=== PATIENT | female | born 1970 | race Caucasian/White ===

== ENCOUNTER → 2023-06-02 12:55 | Outpatient (REF) | payer BC, SELFPAY | LOC: HWRAD 12:55 | PROVIDERS: ATTENDING PHYSICIAN Physician Assistant | DX: I10 Essential (primary) hypertension (principal); R07.9 Chest pain, unspecified; R05.2 Subacute cough | CPT/HCPCS: 71046 ==

== ENCOUNTER → 2023-09-18 15:25 | Outpatient (REF) | payer OTHER, SELFPAY | LOC: WDC 15:25 | PROVIDERS: ATTENDING PHYSICIAN Physician Assistant | DX: Z12.31 Encounter for screening mammogram for malignant neoplasm of breast (principal) | CPT/HCPCS: 77063; 77067 ==

== ENCOUNTER 2024-01-30 13:23 | Emergency (ER) | payer OTHER, SELFPAY ==
[2024-01-30] VITALS (9 sets, daily range): BP systolic 137–179; BP diastolic 81–101; BMI 30.1
--- NOTE | 2024-01-30 14:01 | EDRN ---
provider currently at the pts bedside
--- NOTE | 2024-01-30 14:38 | ED.GENMED ---
History of Present Illness
General
Chief Complaint: Blood Pressure Problem
Time Seen by Provider: 01/30/24 13:44
History of Present Illness
History of Present Illness:
53-year-old female with history of high blood pressure presenting to the emergency department for dizziness and generally feeling unwell. Patient reports that she has been feeling unwell for the past few days and this morning particularly felt
dizzy while getting out of bed. She checked her blood pressure, noted that it was elevated so she called her doctor and went to the doctor's office today. At the doctor's office, blood pressure was markedly elevated, so she was advised to come to
the hospital. She reports that the dizziness is worse with certain movements. Denies associated chest pain or difficulty breathing. Denies weakness or numbness to her extremities. Denies visual changes. Denies recent fever or illness. Denies
abdominal pain or GI symptoms. She reports compliance with her blood pressure medication. Denies acute medical complaints
Past History
Past History
ED Past Medical History: HTN
ED Past Surgical History: , Gynecological and Tonsilectomy
Social History
Tobacco: Former smoker
Alcohol: Occasional
Drug: None
Personal:
Living: with family
Employment: Not employed
Family History
Family History: Diabetes, Hypertension and Early CAD
Phy Exam
Physical Exam
Physical Exam:
General: Well-appearing, no clinical signs of dehydration, nontoxic and in no acute distress
HEENT: protecting airway
Neck: appears supple
CV: Normal heart rate, regular rhythm
Resp: No accessory muscle use, no increased work of breathing, lungs clear to auscultation bilaterally
Abd: Soft and non-distended, no tenderness to palpation
Extremities: No deformities, no swelling, no erythema, pulses and sensation intact
Neuro: alert, no focal neurologic deficit
: deferred
Rectal: deferred
Psych: Normal affect
Skin: Intact
Course
Orders/Labs/Results
Orders:
Orders
01/30/24 13:33
Electrocardiogram (*1) Urgent
Reason for Study: Chest Pain
EKG- Treatment ONCE
01/30/24 14:13
Meclizine [Antivert] 25 mg PO NOW STA
01/30/24 14:14
CT Head W/o Iv Contrast Urgent
Comment:
Reason For Exam: dizzy, htn
01/30/24 14:40
Complete Blood Count/With Diff Urgent
Comprehensive Metabolic Panel Urgent
Troponin I Urgent
Abnormal Lab Results
01/30/24
14:40
MCH 31.3 H pg
(27.0-31.0)
Absolute Monos (auto) 0.7 H 10^3/uL
(0.1-0.6)
Creatinine 0.5 L mg/dL
(0.6-1.0)
Glucose 103 H mg/dl
(70-99)
01/30/24 14:40
01/30/24 14:40
Vital Signs
Initial and Last Documented VS:
Initial Vital Signs
Temp Pulse Resp BP Pulse Ox
98.2 F 82 16 179/101 99
01/30/24 13:27 01/30/24 13:27 01/30/24 13:27 01/30/24 13:27 01/30/24 13:27
Last Documented Vital Signs
Temp Pulse Resp BP Pulse Ox
97.5 F 76 20 157/83 99
01/30/24 13:41 01/30/24 15:45 01/30/24 14:52 01/30/24 16:02 01/30/24 16:02
MDM/Problems Addressed
MDM/Problems Addressed:
53-year-old female with history of hypertension presenting for dizziness and generally feeling unwell. Vital signs on arrival significant for high blood pressure, however improved without intervention.
On exam, patient is resting comfortably, no acute distress or discomfort. Overall benign examination, unremarkable cardiac and pulmonary exam. On neurologic exam, no focal neurologic deficits would lower suspicion for central neurologic process.
Patient does report symptoms are worse with some head movements and when bending forward. Possible vertiginous component. EKG obtained, nonischemic chest pain suspicion for ACS. Will obtain laboratory analysis and check electrolyte panel,
hemoglobin to ensure no symptomatic anemia. Will also screen with CT brain imaging. Will trial meclizine and reassess for improvement.
15:45 - CT brain without acute intracranial abnormality. Labs unremarkable. Blood pressure remained stable. On reassessment, patient remains hemodynamically stable. Feel stable for discharge with close outpatient primary care follow-up. Return
precautions discussed and patient verbalized understanding
*EKG
Interpreted by ED Provider?: Yes
EKG Intrepretation Date: 01/30/24
EKG Intrepretation Time: 14:41
Interpretation: normal
Comparison EKG: no comparison EKG present
Heart Rate: 74
Rate: normal
Rhythm: sinus
[place]: normal axis
Interval: normal interval
QRS Pattern: normal QRS
Ischemia: no ischemia
*Critical Care Note
Total Time (30-74mins, 75-104mins- exclusive of procedures): Not Applicable
ED Attending Note
-
Portions of this chart may have been created with voice recognition software.� Occasional wrong word or��sound alike� substitutions may have occurred due to the inherent limitations of voice recognition software.
Discharge Plan
Departure
Patient Disposition: Home (Routine Discharge)
Date of Disposition: 01/30/24
Time of Disposition: 15:50
Patient with high blood pressure during this ER visit?: Yes
Condition: Good
Discharge Problem:
Dizziness, Hypertension
Instructions: Dizziness, Adult ED, BLOOD PRESSURE
Prescriptions:
New
meclizine 25 mg tablet
25 mg PO BID PRN (Reason: dizziness) 5 Days Qty: 10 0RF
No Action
alprazolam 0.25 MG tablet
0.125 - 0.25 mg PO HSPRN PRN (Reason: sleep)
Patient Comments:
filled pdmp 05/05/20
amlodipine-benazepril 1 CAPSULE capsule
1 cap PO DAILY
Referrals:
Chance Linn, DO [Family Provider] -
Activity Restrictions/Additional Instructions:
You were seen in the emergency department for dizziness
You were found to have elevated blood pressure, however you had normal EKG, blood work, CT brain imaging of your head.
Please follow-up closely with your primary care physician.
Return to the emergency department for any worsening of your symptoms, or any development of chest pain, difficulty breathing, abdominal pain with persistent vomiting and inability to tolerate food or liquid by mouth (concern for dehydration),
weakness or lightheadedness, headache or confusion, fever greater than 100.4, or any additional symptoms that are concerning to you.
Thank you for choosing [facility].
Interventions
Interventions:
*Risk Screen - Suicide Last Done: 01/30/24 13:27
*General Assessment Last Done: 01/30/24 13:27
*Neglect/Abuse Screening Last Done: 01/30/24 13:27
ED- Fall Risk Assessment Last Done: 01/30/24 13:41
*ED COVID-19 Vaccine History Last Done: 01/30/24 13:41
*Nursing Disposition Last Done: 01/30/24 16:02
ED- Cardiac Assessment Last Done: 01/30/24 13:41
ED- Neurological Assessment Last Done: 01/30/24 13:41
ED- Pulmonary Assessment Last Done: 01/30/24 13:41
Discharge Date and Time
Discharge Date/Time: 01/30/24 16:05
Print Language: ROMANSH
--- NOTE | 2024-01-30 14:52 | EDRN ---
labs were drawn and sent, the pt refused to be swabbed for covid and refused meclizine, provider notified
[2024-01-30 15:00] LABS: % Basophils 0.3 % (0-2); % Eosinophils 3.5 % (0-6); % Immature Granulocytes 0.2 % (0-0.5); % Lymphocytes 25.4 % (20.5-51.1); % Monocytes 7.1 % (1.7-9.3); % Neutrophils 63.5 % (42.2-75.2); Absolute Eosinophils 0.3 10^3/uL (0-0.7); Absolute Lymphocytes 2.3 10^3/uL (1.2-3.4); Absolute Monocytes 0.7 10^3/uL (0.1-0.6); Absolute Neutrophils 5.8 10^3/uL (1.4-6.5); Hematocrit 42.6 % (37.0-47.0); Hemoglobin 14.5 g/dL (12.0-16.0); Mean Corpuscular Hgb 31.3 pg (27.0-31.0); Mean Corpuscular Volume 91.8 fL (81.0-99.0); Mean Platelet Volume 9.5 fL (7.4-10.4); Nucleated Red Blood Cells % 0 %; Platelet Count 260 10^3/uL (130-400); Red Blood Cell Count 4.64 10^6/uL (4.20-5.40); Red Cell Dist. Width 11.8 % (11.5-14.5); White Blood Cell Count 9.2 10^3/uL (4.8-10.8)
[2024-01-30 15:16] LABS: ALT (SGPT) 30 U/L (0-35); AST (SGOT) 27 U/L (14-36); Albumin 4.7 g/dl (3.5-5.0); Alkaline Phosphatase 68 U/L (38-126); Blood Urea Nitrogen 12 mg/dl (7-17); Calcium 9.5 mg/dl (8.4-10.2); Carbon Dioxide 28 mmol/L (22-30); Chloride 104 mmol/L (98-107); Estimated Creatinine Clearance 109 ml/min; Glucose 103 mg/dl (70-99); Potassium 3.8 mmol/L (3.5-5.1); Sodium 142 mmol/L (135-145); Total Bilirubin 0.5 mg/dl (0.2-1.3); Total Protein 7.2 g/dl (6.3-8.2); eGFR > 60.00
[2024-01-30 15:27] LABS: Troponin I < 0.012 ng/ml
== END 2024-01-30 16:05 | disposition home or self-care (01) ==
LOC: EMR 13:23
PROVIDERS: EMERGENCY PHYSICIAN Student in an Organized Health Care Education/Training Program; FAMILY PHYSICIAN Family Medicine
DX: R42 Dizziness and giddiness (principal); I10 Essential (primary) hypertension; Z82.49 Family history of ischemic heart disease and other diseases of the circulatory system; Z83.3 Family history of diabetes mellitus; Z87.891 Personal history of nicotine dependence
CPT/HCPCS: 99284; 70450; 80053; 84484; 85025; 93005

== ENCOUNTER → 2024-03-05 08:40 | Outpatient (REF) | payer OTHER, SELFPAY | LOC: HWRAD 08:40 | PROVIDERS: ATTENDING PHYSICIAN Physician Assistant Medical; FAMILY PHYSICIAN Family Medicine | DX: R05.3 Chronic cough (principal) | CPT/HCPCS: 71046 ==

== ENCOUNTER 2024-03-19 17:55 | Emergency (ER) | payer SELFPAY ==
[2024-03-19 17:56] VITALS: BP 160/98
[2024-03-19 19:38] VITALS: BMI 14.2
[2024-03-19 19:39] VITALS: BMI 27.0
[2024-03-19 20:42] VITALS: BP 155/74
--- NOTE | 2024-03-19 21:00 | ED.GENMED ---
History of Present Illness
General
Chief Complaint: Head Injury
Source: patient
Exam Limitations: none
Time Seen by Provider: 03/19/24 19:22
Nursing documentation reviewed up to this point in time: agreed with
History of Present Illness
History of Present Illness:
Patient states he tripped and fell, hit head on concrete. No LOC. Has abrasion to ant. left sclpp. Injury occured yesterday. Today noted n/v/d. Advised to come to ED for eval.
Past History
Past History
ED Past Medical History: HTN
ED Past Surgical History: , Gynecological and Tonsilectomy
Social History
Tobacco: Former smoker
Alcohol: Occasional
Drug: None
Personal:
Living: with family
Employment: Not employed
Family History
Family History: Diabetes, Hypertension and Early CAD
Review of Systems
Review of Systems
Allergies reviewed?: Yes
All Other Systems: ROS reviewed and negative except as documented in HPI and ROS
Constitutional: Reports no symptoms
EENT: Reports no symptoms
Respiratory: Reports no symptoms
Cardiac: Reports no symptoms
ABD/GI: Reports nausea, vomiting and diarrhea
: Reports no symptoms
Musculoskeletal: Reports no symptoms
Skin: Reports other (abrasion left ant. scalp)
Neurological: Reports no symptoms
Psychiatric: Reports no symptoms
Phy Exam
General Physical Exam
General Presentation: well appearing and no apparent distress
General age: appears stated age
General Skin: warm and dry
General Habitus: normal
Eye Exam
Eye Exam: PERRL, EOMI, conjunctiva normal and globe normal
Gastrointestinal Exam
Gastrointestinal Exam: normal bowel sounds, non tender, soft, no organomegaly and non distended
Neurological Exam
Neurological Exam: alert, oriented x3, CN II-XII intact, no motor deficits, no sensory deficits, speech normal and normal gait
Willie Coma Scale
Eye Opening: Spontaneous
Verbal Response: Oriented
Motor Response: Obeys Commands
GCS Total Score: 15
Musculoskeletal Exam
Musculoskeletal Exam: full ROM and neuro vasc intact
Skin Exam
Skin Exam: normal color, warm/dry and no rash
Psychiatric Exam
Psychiatric Exam: normal mood/affect
Course
Orders/Labs/Results
Orders:
Orders
03/19/24 19:46
CT Head W/o Iv Contrast Urgent
Comment:
Reason For Exam: trauma
Vital Signs
Initial and Last Documented VS:
Initial Vital Signs
Temp Pulse Resp BP Pulse Ox
98.2 F 115 16 160/98 98
03/19/24 17:56 03/19/24 17:56 03/19/24 17:56 03/19/24 17:56 03/19/24 17:56
Last Documented Vital Signs
Temp Pulse Resp BP Pulse Ox
98.2 F 102 20 155/74 98
03/19/24 17:56 03/19/24 20:42 03/19/24 20:42 03/19/24 20:42 03/19/24 21:00
*Radiology
Radiology exam reviewed: radiology read reviewed
*Pulse Oximetry
Patient hypoxic: no
*Critical Care Note
Total Time (30-74mins, 75-104mins- exclusive of procedures): Not Applicable
Update Note
Update Note:
Patient to ED after trip and fall yesterday. Sustained contusion to left ant. scalp. N/V/D at home, no episodes in ED. Ct reviewed, normal. Normal physical exam. Discussed concussion s/s and treatment with her. Also discussed viral illness as
cause of symptoms. She remains awake and alert, in no distress. Will discharge home, close follow up with PCP. Given instructions on s/s to return to ED andshe is agreeable to plan.
ED Attending Note
-
Portions of this chart may have been created with voice recognition software.� Occasional wrong word or��sound alike� substitutions may have occurred due to the inherent limitations of voice recognition software.
Discharge Plan
Departure
Patient Disposition: Home (Routine Discharge)
Date of Disposition: 03/19/24
Time of Disposition: 20:58
Patient with high blood pressure during this ER visit?: No
Condition: Good
Covid-19: Not Applicable
Discharge Problem:
Head injury
Instructions: Head Injury in Adults (DC)
Prescriptions:
No Action
amlodipine-benazepril 1 CAPSULE capsule
1 cap PO BID
Referrals:
Chance Linn, [Family Provider] - Follow up in 2-3 days
Interventions
Interventions:
*Risk Screen - Suicide Last Done: 03/19/24 17:56
*General Assessment Last Done: 03/19/24 19:40
*Neglect/Abuse Screening Last Done: 03/19/24 17:56
ED- Fall Risk Assessment Last Done: 03/19/24 21:00
*ED COVID-19 Vaccine History Last Done: 03/19/24 19:40
*Nursing Disposition Last Done: 03/19/24 21:00
ED- Neurological Assessment Last Done: 03/19/24 19:40
ED-Skin Assessment Last Done: 03/19/24 19:40
Discharge Date and Time
Discharge Date/Time: 03/19/24 21:09
Print Language: [place]URUN[place]
== END 2024-03-19 21:09 | disposition home or self-care (01) ==
LOC: EMR 17:55
PROVIDERS: EMERGENCY PHYSICIAN Student in an Organized Health Care Education/Training Program; FAMILY PHYSICIAN Family Medicine
DX: S00.01XA Abrasion of scalp, initial encounter (principal); W01.0XXA Fall on same level from slipping, tripping and stumbling without subsequent striking against object, initial encounter; I10 Essential (primary) hypertension; Z87.891 Personal history of nicotine dependence
CPT/HCPCS: 99284; 70450

== ENCOUNTER 2024-06-11 06:28 | Day surgery (SDC) | payer OTHER, SELFPAY | END 2024-06-11 14:21 | disposition home or self-care (01) | LOC: GI 06:28 | PROVIDERS: ATTENDING PHYSICIAN Internal Medicine Gastroenterology | DX: Z12.11 Encounter for screening for malignant neoplasm of colon (principal); D12.3 Benign neoplasm of transverse colon; D12.4 Benign neoplasm of descending colon; K57.30 Diverticulosis of large intestine without perforation or abscess without bleeding; D12.8 Benign neoplasm of rectum; K20.0 Eosinophilic esophagitis; K44.9 Diaphragmatic hernia without obstruction or gangrene; R13.14 Dysphagia, pharyngoesophageal phase | CPT/HCPCS: 45385; 43239; 88305 ==

== ENCOUNTER → 2024-12-23 18:06 | Outpatient (REF) | payer OTHER, SELFPAY | LOC: PAVMRI 18:06 | PROVIDERS: ATTENDING PHYSICIAN Student in an Organized Health Care Education/Training Program; FAMILY PHYSICIAN Family Medicine | DX: M79.672 Pain in left foot (principal); M25.572 Pain in left ankle and joints of left foot | CPT/HCPCS: 73718; 73721 ==